=== PATIENT | female | born 1985 | race Two or more races ===

== ENCOUNTER 2023-03-03 09:30 | Inpatient (IN) | payer OTHER ==
[~2023-03-03] VITALS: Ht 162.6 cm; Wt 99.3 kg
[~2023-03-03 09:30] MED LIST: TAPAZOLE5 MG PO; VITAMIN D PO
[2023-03-04] MEDS ORDERED: VITAMIN D3250 MC1 PO (10:04)
== END 2023-03-05 14:02 | disposition home or self-care (01) | DRG 627 ==
LOC: CIR.AMB 09:30 → SURH 17:19
PROVIDERS: ADMIT Otolaryngology; ATTEND Otolaryngology
PROC: 0GTK0ZZ Resection of Thyroid Gland, Open Approach (ICD-10-PCS; principal; 2023-03-03 07:00)
DX: E06.3 Autoimmune thyroiditis (principal)